=== PATIENT | female | born 1975 | race Hispanic/Latino ===

== ENCOUNTER 2017-11-22 21:53 | Emergency (ER) | payer OTHER ==
[~2017-11-22] VITALS: Ht 170.2 cm; Wt 84.8 kg
[~2017-11-22 21:53] MED LIST: NITROFURANTOIN100 MG PO
[2017-11-22] MEDS ORDERED: HYDROCODONE/APAP 5MG-325MG TAB PO ONE (22:30)
[2017-11-22 23:15] VITALS: BP 141/73
== END 2017-11-22 23:15 | disposition home or self-care (01) ==
LOC: FSED 21:53
DX: F41.9 Anxiety disorder, unspecified (principal); R51 Headache; I10 Essential (primary) hypertension
CPT/HCPCS: 99282

== ENCOUNTER 2024-11-21 19:09 | Emergency (ER) | payer BC, OTHER ==
[~2024-11-21] VITALS: Ht 170.2 cm; Wt 82.1 kg
[~2024-11-21 19:09] MED LIST changes: +CETIRIZINE HCL10 MG PO; +MACROBID 100 M100 MG PO
[2024-11-21 19:12] VITALS: PULSE 86; RESP 16; TEMP 98.4
[2024-11-21 19:30] VITALS: BP 148/89; PULSE 86; RESP 16; TEMP 98.4; O2SAT 97
== END 2024-11-21 19:33 | disposition home or self-care (01) ==
LOC: FSED 19:12
DX: M25.512 Pain in left shoulder (principal); S46.812A Strain of other muscles, fascia and tendons at shoulder and upper arm level, left arm, initial encounter; W10.8XXA Fall (on) (from) other stairs and steps, initial encounter; Y93.01 Activity, walking, marching and hiking; Y92.89 Other specified places as the place of occurrence of the external cause; I10 Essential (primary) hypertension; E11.9 Type 2 diabetes mellitus without complications
CPT/HCPCS: 99283